=== PATIENT | female | born 1940 | race African-American/Black ===

== ENCOUNTER 2020-01-10 06:10 | Observation (INO) | payer MEDICARE, OTHER ==
[2020-01-07 09:56] LABS: BASOPHILS % 0.7 % (0.0-1.0); EOSINOPHILS # (AUTO) 0.2 (0.0-0.4); EOSINOPHILS % 2.6 % (0.0-6.0); HEMATOCRIT 37.2 % (34.2-44.1); HEMOGLOBIN 12.3 g/dL (12.0-16.0); LYMPHOCYTES % 32.6 % (18.0-39.1); MEAN CORPUSCULAR HEMOGLOBIN 28.8 pg (28-32); MEAN CORPUSCULAR HGB CONC 33.1 g/dL (31-35); MEAN CORPUSCULAR VOLUME 87.1 fL (81-99); MONOCYTES # (AUTO) 0.5 (0.2-0.8); MONOCYTES % 8.8 % (4.4-11.3); NEUTROPHILS # (AUTO) 3.4 (2.1-6.9); NEUTROPHILS % 55.1 % (38.7-80.0); PLATELET COUNT 240 x10e3/uL (140-360); RED BLOOD COUNT 4.27 x10e6/uL (3.6-5.1); RED CELL DISTRIBUTION WIDTH 13.6 % (11.7-14.4)
--- NOTE | 2020-01-07 10:11 | Diagnostic Imaging Report ---
Chest, 2 views, 01/07/2020. History: Shortness of breath. Comparison: None available. Findings: The cardiomediastinal silhouette and pulmonary vasculature are within normal limits. The lungs are clear without evidence of consolidation or pleural effusion. Surgical clips are noted in the right lower neck region. Degenerative changes are present in the shoulders. There are no acute osseous or soft tissue abnormalities. Impression: No acute cardiopulmonary abnormality. Signed by: Will Kaufman on 01/07/2020 10:09 AM
[2020-01-07 10:14] LABS: ALANINE AMINOTRANSFERASE 10 IU/L (0-55); ALBUMIN 3.4 g/dL (3.5-5.0); ALKALINE PHOSPHATASE 74 IU/L (40-150); ANION GAP 6.8 mmol/L (8-16); BLOOD UREA NITROGEN 14 mg/dL (7-26); BUN/CREATININE RATIO 16 (6-25); CALCIUM 10.3 mg/dL (8.4-10.2); CARBON DIOXIDE 27 mmol/L (22-29); CHLORIDE 109 mmol/L (98-107); CREATININE, SERUM 0.88 mg/dL (0.57-1.11); EST GLOMERULAR FILTRATION RATE > 60 ML/MIN (60-); GLUCOSE 89 mg/dL (74-118); POTASSIUM 3.8 mmol/L (3.5-5.1); SODIUM 139 mmol/L (136-145)
[~2020-01-10] VITALS: Ht 152.4 cm; Wt 110.4 kg
[~2020-01-10 06:10] MED LIST: ALENDRONATE SOD70 MG PO; ALLOPURINOL100 MG PO; AMLODIPINE BESYL5 MG PO; BYSTOLIC10 MG PO; CLONAZEPAM0.5 MG PO; DECARA25000 UNIT PO; EXENATIDE; FUROSEMIDE40 MG PO; MONTELUKAST SOD10 MG PO; OXAPROZIN600 MG PO; POTASSIUM CHLO20 ME1 PO; TRULICITY1.5 MG/0.5 INJ; Z ULORIC PO; Z.0.CELEBREX200 MG PO; Z.0.DIOVAN HCT 3201 PO; [UNRECOGNIZED DRUG - OTHER] PO; [UNRECOGNIZED DRUG - OTHER] PO
--- OUTSIDE RECORDS SUMMARY | 2020-01-10 06:18 | XMS REPORT ---
Author Author [facility] Address Unknown Phone Unavailable Care Team Providers Care [employer] Paralegal Name Role Phone Yajaira WALKER Unavailable Unavailable BENOIT NARANJO Unavailable Unavailable Problems This patient has no known problems. Allergies, Adverse Reactions, Alerts This patient has no known allergies or adverse reactions. Medications This patient has no known medications. Encounters Start Date/Time End Date/Time Encounter Type Admission Type Attending [facility] Care Facility Care Department Encounter ID 2019-10-06 11:38:00 2019-10-06 11:38:00 Emergency E MHBL [id number] 2019-05-05 10:07:00 2019-05-05 10:07:00 Outpatient MHSE MED [id number] Results Test Description Test Time Test Comments Text Results Atomic Results Result Comments CHEST 2 VIEWS 2020-01-07 10:08:00 [place] [address] Patient Name: ARIADNA LONGORIA MR #: [id number] : 1940 Age/Sex: 79/F Req #: [id number] Adm Physician: Ordered by: DEMARIO WALKER MD Report #: [id number] Location: OR Room/Bed: Procedure: [id number] DX/CHEST 2 VIEWS Exam Date: 01/07/20 Exam Time: 0950 REPORT STATUS: Signed Chest, 2 views, 01/07/2020. History: Shortness of breath. Comparison: None available. Findings: The cardiomediastinal silhouette and pulmonary vasculature are within normal limits. The lungs are clear without evidence of consolidation or pleural effusion. Surgical clips are noted in the right lower neck region. Degenerative changes are present in the shoulders. There are no acute osseous or soft tissue abnormalities. Impression: No acute cardiopulmonary abnormality. Signed by: Will Kaufman on 01/07/2020 10:09 AM Dictated By: WILL KAUFMAN MD 1009 Transcribed By: SHARDA on 01/07/20 1009 COPY TO: DEMARIO WALKER MD BREAST STEREO CORE BIOPSY LEFT 2019-08-23 14:01:28 - BREAST STEREO CORE BIOPSY LEFTSTEREOTACTIC GUIDED BIOPSY LEFT BREAST WITH MARKING DEVICE INSERTED: 08/17/2019CLINICAL: Stereotactic biopsy, left breast. Comparison is made to exam dated 07/27/2019 mammogram - [facility]. A stereotactic guided biopsy was performed for the fine segmental calcification located in the left breast at 8 o'clock, posterior depth. This was described on the previous mammography report. The skin was prepped in the usual manner. Local anesthetic was administered to the access site. The abnormality was approached from the craniocaudal aspect using an upright mammography unit. A biopsy needle was placed adjacent to the abnormality under computer guidance and confirmatory stereotactic mammography images were obtained to document needle placement. Onc e the needle was documented to be in the correct location, a specimen was obtained using an automated biopsy gun. An "M" shaped clip was inserted into the biopsy cavity. The specimen was sent to the laboratory for pathological analysis. IMPRESSION: STEREOTACTIC GUIDED BIOPSYStereotactic guided biopsy of the calcification in the left breast at 8 o'clock, posterior depth, was successful with no apparent post procedure complications. Waiting for pathology results. A final report will be issued when these become available. FINAL PATHOLOGY:Benign breast tissue with focal atypical ductal hyperplasia with calcifications. Negative for in situ and invasive malignancy.RECOMMENDATION:High risk pathology (ADH). However, overall this is discordant given the segmental distribution of these linear calcifciations. Given multiple spiculated asymmetries in the extent of these calcifications, breast MRI with and without contrast is recommended for further clarification. Further biopsies can be performed after the MRI. Surgical consultation for further management and complete excision is also recommended at this time. Lowell Bennett M.D. ss/:08/23/2019 14:01:28 Entry: 08/23/2019 14:42:33Imaging Technologist: Meghan SANDERS, [facility]OPSY LEFT 2019-08-23 13:59:40 - BREAST STEREO CORE BIOPSY LEFTSTEREOTACTIC GUIDED BIOPSY LEFT BREAST WITH MARKING DEVICE INSERTED: 08/17/2019CLINICAL: Stereotactic biopsy, left breast. Comparison is made to exam dated 07/27/2019 mammogram - [facility]. A stereotactic guided biopsy was performed for the microlobulated irregular shaped asymmetry located in the left breast at 8 o'clock, posterior depth. This was described on the previous mammography report. The skin was prepped in the usual manner. Local anesthetic was administered to the access site. The abnormality was approached from the craniocaudal aspect using an upright mammography unit. A biopsy needle was placed adjacent to the abnormality under computer guidance and confirmatory stereotactic mammography images were obtained to document needle pl acement. Once the needle was documented to be in the correct location, a specimen was obtained using an automated biopsy gun. An "O" shaped clip was inserted into the biopsy cavity. The specimen was sent to the laboratory for pathological analysis. IMPRESSION: STEREOTACTIC GUIDED BIOPSYStereotactic guided biopsy of the asymmetry in the left breast at 8 o'clock, posterior depth, was successful with no apparent post procedure complications. Waiting for pathology results. A final report will be issued when these become available. FINAL PATHOLOGY:Invasive ductal carcinoma with tubular features, grade 1.RECOMMENDATION:Concordant findings, malignant. Upon further review patient has similar appearing spiculated masses/asymmetries in the medial breast. These are marked on the LSCC from 07/27/2019. Given that the largest one is IDC, the rest appear to be satellite lesions and the farthest posterior one is 7 cm from this biopsy proven IDC. Since these were not seen on U/S, breast MRI with and without contrast is recommended for further clarification of the extent of disease, specially given the adjacent discordant calcifications. Surgical consultation for further management is also recommended. FINAL PATHOLOGY:Lowell Bennett M.D. ss/:08/23/2019 13:59:40 Entry: 08/23/2019 14:44:57Imaging Technologist: Meghan SANDERS [facility] BREAST STEREO CORE BIOPSY LEFT 2019-08-23 13:59:40 - BREAST STEREO CORE BIOPSY LEFTSTEREOTACTIC GUIDED BIOPSY LEFT BREAST WITH MARKING DEVICE INSERTED: 08/17/2019CLINICAL: Stereotactic biopsy, left breast. Comparison is made to exam dated 07/27/2019 mammogram - [facility]. A stereotactic guided biopsy was performed for the microlobulated irregular shaped asymmetry located in the left breast at 8 o'clock, posterior depth. This was described on the previous mammography report. The skin was prepped in the usual manner. Local anesthetic was administered to the access site. The abnormality was approached from the craniocaudal aspect using an upright mammography unit. A biopsy needle was placed adjacent to the abnormality under computer guidance and confirmatory stereotactic mammography images were obtained to document needle pl acement. Once the needle was documented to be in the correct location, a specimen was obtained using an automated biopsy gun. An "O" shaped clip was inserted into the biopsy cavity. The specimen was sent to the laboratory for pathological analysis. IMPRESSION: STEREOTACTIC GUIDED BIOPSYStereotactic guided biopsy of the asymmetry in the left breast at 8 o'clock, posterior depth, was successful with no apparent post procedure complications. Waiting for pathology results. A final report will be issued when these become available. FINAL PATHOLOGY:Invasive ductal carcinoma with tubular features, grade 1.RECOMMENDATION:Concordant findings, malignant. Upon further review patient has similar appearing spiculated masses/asymmetries in the medial breast. These are marked on the LSCC from 07/27/2019. Given that the largest one is IDC, the rest appear to be satellite lesions and the farthest posterior one is 7 cm from this biopsy proven IDC. Since these were not seen on U/S, breast MRI with and without contrast is recommended for further clarification of the extent of disease, specially given the adjacent discordant calcifications. Surgical consultation for further management is also recommended. FINAL PATHOLOGY:Lowell Bennett M.D. ss/:08/23/2019 13:59:40 Entry: - 08/23/2019 14:44:57Imaging Technologist: Meghan SANDERS, [facility] BREAST STEREO CORE BIOPSY LEFT 2019-08-23 13:59:40 - BREAST STEREO CORE BIOPSY LEFTSTEREOTACTIC GUIDED BIOPSY LEFT BREAST WITH MARKING DEVICE INSERTED: 08/17/2019CLINICAL: Stereotactic biopsy, left breast. Comparison is made to exam dated 07/27/2019 mammogram - [facility] A stereotactic guided biopsy was performed for the microlobulated irregular shaped asymmetry located in the left breast at 8 o'clock, posterior depth. This was described on the previous mammography report. The skin was prepped in the usual manner. Local anesthetic was administered to the access site. The abnormality was approached from the craniocaudal aspect using an upright mammography unit. A biopsy needle was placed adjacent to the abnormality under computer guidance and confirmatory stereotactic mammography images were obtained to document needle pl acement. Once the needle was documented to be in the correct location, a specimen was obtained using an automated biopsy gun. An "O" shaped clip was inserted into the biopsy cavity. The specimen was sent to the laboratory for pathological analysis. IMPRESSION: STEREOTACTIC GUIDED BIOPSYStereotactic guided biopsy of the asymmetry in the left breast at 8 o'clock, posterior depth, was successful with no apparent post procedure complications. Waiting for pathology results. A final report will be issued when these become available. FINAL PATHOLOGY:Invasive ductal carcinoma with tubular features, grade 1.RECOMMENDATION:Concordant findings, malignant. Upon further review patient has similar appearing spiculated masses/asymmetries in the medial breast. These are marked on the LSCC from 07/27/2019. Given that the largest one is IDC, the rest appear to be satellite lesions and the farthest posterior one is 7 cm from this biopsy proven IDC. Since these were not seen on U/S, breast MRI with and without contrast is recommended for further clarification of the extent of disease, specially given the adjacent discordant calcifications. Surgical consultation for further management is also recommended. FINAL PATHOLOGY:Lowell Bennett M.D. ss/:08/23/2019 13:59:40 Entry: - 08/23/2019 14:44:57Imaging Technologist: Meghan SANDERS, [facility] DIAG MAMM LEFT TRAM CAD DIGITAL 2019-07-27 14:05:53 - DIAG MAMM LEFT TRAM CAD DIGITALUNILATERAL LEFT DIGITAL DIAGNOSTIC MAMMOGRAM 3D/2D WITH CAD: 07/27/2019CLINICAL: Abnormal Mammogram. Digital breast tomosynthesis was performed in addition to routine CC and MLO views. Current mammographic images were evaluated by either a Agendia M-Vu or a InfoVista ImageChecker CAD (computer aided detection system). Comparison is made to exams dated 07/09/2019 mammogram, 01/12/2015 mammogram, and 12/10/2012 mammogram - [facility] There are scattered fibroglandular tissues in the left breast. Bilateral breast with multiple areas of fat necrosis/oils cysts. Persistent tubular focal asymmetries in the left lower inner breast, automotive leasing sales representative one is a 5 mm focal asymmetry, approximately 11 cm from nipple, with irregular margins. Additionally, segment ally distributed fine branching calcifications in the lower breast at 6-7 o'clock that spans 85 x 80 x 50 mm (AP x WA x SI). IMPRESSION: INCOMPLETE ASSESSMENT: ADDITIONAL IMAGING EVALUATION RECOMMENDED1. Focal asymmetries in the left lower inner breast, automotive leasing sales representative one at 11 cm from the nipple, with irregular margins measuring 5mm. 2. Adjacent fine branching segmental calcfications. Ultrasound to follow.Lowell Bennett M.D. ss/:07/27/2019 14:05:53 Entry: - 07/28/2019 11:03:34Imaging Technologist: Akilah Walker , [facility] 0 Indeterminate BREAST ULTRASOUND BILATERAL 2019-07-27 14:05:00 - BREAST ULTRASOUND BILATERALULTRASOUND OF BOTH BREASTS: 07/27/2019Comparison is made to exams dated 07/09/2019 mammogram, 01/12/2015 mammogram, and [facility] Color flow and real-time ultrasound of both breasts were performed. Martinez scale images of the real-time examination were reviewed. The breast tissue has homogenous fatty background echotexture. Bilateral survey ultrasound demonstrates multiple areas of fat necrosis/oil cysts correlating with the mammographic masses. The left lower inner breast demonstrates no suspicious sonographic abnormality; no sonographic correlate for mammographic findings. No axillary lymphadenopathy was seen.IMPRESSION: SUSPICIOUS OF MALIGNANCY - FOLLOW- UP RECOMMENDED1. At least 4 asymmetries in the left lower inner breast, the suspicious one that measures 5 mm seen on frame #26 of LSCC and slice 16 of LLM. Tomosynthesis guided core biopsy is recommended at this time. The rest of the focal asymmetries should be followed with short-term follow-up pending biopsy results.2. Fine branching segmental calcifcations in the lower breast 6-7 o'clock of the left breast. Stereotactic core biopsy is recommended at this time. Results and recommendations were discussed with the patient.Lowell Bennett M.D. ss/:07/27/2019 14:05:00 Entry: - 07/28/2019 11:07:50Imaging Technologist: Akilah Walker , [facility]- letter sent: BIRADS 4/5 Biopsy Ultrasound BI-RADS: 4b Suspicious abnormality - intermediate suspicion of malignancy SCR MAMM BILATERAL TRAM CAD DIGITAL 2019-07-12 14:21:36 - SCR MAMM BILATERAL TRAM CAD DIGITALBILATERAL DIGITAL SCREENING MAMMOGRAM 3D/2D WITH CAD: 07/09/2019CLINICAL: Asymptomatic. Digital breast tomosynthesis was performed in addition to routine CC and MLO views. Current mammographic images were evaluated by either a Agendia M-Vu or a Souktel CAD (computer aided detection system). Comparison is made to exams dated 01/12/2015 mammogram, 12/10 mammogram, and 01/10/2011 mammogram - [facility]-. There are scattered fibroglandular tissues in both breasts. There are several subcentimeter focal asymmetries in the lower inner quadrant of the left breast at middle depth, 11-15 cm from the nipple with associated questionable architectural distortion (LCC 12, 19; LMLO 29, 37, 58). There are also surrounding fine linear calcifications.No other abnormal findings in either breast. IMPRESSION: INCOMPLETE ASSESSMENT: ADDITIONAL IMAGING EVALUATION RECOMMENDEDLEFT BREAST: Several subcentimeter focal asymmetries in the lower inner quadrant of the left breast at middle depth, 11-15 cm from the nipple, with associated questionable architectural distortion (LCC 12, 19; LMLO 29, 37, 58). There are also surrounding fine linear calcifications. Additional tomosynthesis spot compression views and possible ultrasound are recommended.RIGHT BREAST: No mammographic evidence of malignancy. Annual mammgraphic follow-up is recommended. Anyi Chinchilla D.O. al/:07/12/2019 14:21:36 Building Custodial Supervisor: Debo SANDERS, [facility]- letter sent: Additional Imaging Mammogram BI-RADS: 0 Indeterminate US GALLBLADDER [place] [address] Patient Name: ARIADNA LONGORIA MR #: [id number] : 1940 Age/Sex: 76/F Req #: [id number] Adm Physician: Ordered by: BENOIT NARANJO MD Report #: [id number] Location: US Room/Bed: Procedure: [id number] US/US GALLBLADDER Exam Date: 07/29/17 Exam Time: 1115 REPORT STATUS: Signed PROCEDURE: US GALLBLADDER COMPARISON: None. INDICATIONS: Nausea FINDINGS: Martinez scale and color flow Doppler ultrasound of the right upper abdomen was performed. Liver: 12.8 cm span. Normal parenchymal echogenicity. No discrete mass or intrahepatic duct dilatation. Main portal vein 0.8 cm, normal hepatopetal flow. Biliary: No cholelithiasis or gallbladder wall thickening. Sonographic Carnes's sign negative. Common bile duct 0.3 cm, nondilated. Right kidney: 11.2 cm span. There is a simple cyst measuring 6.9 x 4.6 x 6.2 cm at the lateral lower pole of the right kidney. No hydronephrosis. Cortical echogenicity normal. Pancreas: Visualized portions unremarkable. Vessels: The visualized portions of the aorta and IVC unremarkable. Ascites: No free fluid in the right upper abdomen. CONCLUSION: 1. No cholelithiasis or gallbladder wall thickening. No dilatation of the biliary tree. 2. Right renal cyst. 3. No sonographic evidence for acute pathology in the right upper abdomen. Dictated by: Domi Merrill M.D. on 07/29/2017 at 12:25 Electronically approved by: Domi Merrill M.D. on 07/29/2017 at 12:25 Dictated By: DOMI MERRILL MD 1225 Transcribed By: JANINE on 07/29/17 1225 COPY TO: BENOIT NARANJO MD
--- OUTSIDE RECORDS SUMMARY | 2020-01-10 06:18 | XMS REPORT | Summary of Care ---
Author Author MICHAEL TYSON M.D. Unknown Address [facility] Phone Unavailable Care Team Providers Care [employer]ater Furnace Name Role Phone MICHAEL TYSON M.D. Unavailable Unavailable SOTO DAMON MD Unavailable Unavailable MICHAEL TYSON MD Unavailable Unavailable Unavailable Unavailable Functional Status Name Dates Details Functional status health issues are not documented Status: Name Dates Details Cognitive status health issues are not documented Status: Problems Name Dates Details Gastritis (535.50, K29.70) Status: Active Hearing loss (389.9, H91.90) Status: Active Multinodular goiter (241.1, E04.2) Status: Active Diabetes (250.00, E11.9) Status: Active High blood pressure (401.9, I10) Status: Active Rhinorrhea (478.19, J34.89) Status: Active Sneezing with right watery eye (784.99, H04.201) Status: Active Allergic rhinitis (477.9, J30.9) Status: Active Chronic headaches (784.0, R51) Status: Active Medications Name Dates Details K-Maryuri 20 MEQ PACK Active Trulicity SOPN * Refills: 0 Active Furosemide TABS * Refills: 0 Active Atorvastatin Calcium TABS * Refills: 0 Active Meclizine HCl TABS * Refills: 0 Active clonazePAM TABS * Refills: 0 Active Bystolic TABS * Refills: 0 Active amLODIPine Besylate TABS * Refills: 0 Active Allopurinol TABS * Refills: 0 Active hydrOXYzine HCl TABS * Refills: 0 Active Allergies and Adverse Reactions Name Dates Details No Known Allergies (Allergy) Status: Active Procedures Procedure Dates Details History of Hip Surgery Completed Immunization Name Dates Details Immunizations not documented Family History Name Dates Details Family history of cardiac disorder (V17.49, Z82.49) Status: Active Name Dates Details Family history of malignant neoplasm (V16.9, Z80.9) Status: Active Social History Name Dates Details - Status: Name Dates Details Never smoker Vital Signs Date Test Result Details [id number] BP Systolic 152 mm[Hg] Status: BP Diastolic 79 mm[Hg] Status: Height 66 in Status: Weight 226.25 lb Status: Body Mass Index Calculated 36.52 kg/m2 Status: Body Surface Area Calculated 2.11 m2 Status: Heart Rate 69 /min Status: Results Date Description Value Details Results not documented Plan of Care Name Dates Details Planned Observations Planned Goals not documented Planned Encounters Neurology Referral Interventions Provided Plan* 1. Allergy symptoms are better. Will need to continue the nasal spray and the antihistamine. Neurology consult for the headaches. Instructions Name Dates Details Instructions not documented Encounters Appointment; JOHNATHON WARREN M.D. Encounter Diagnosis: Problem not documented On: 04-Aug-2018 14:30 Appointment; MICHAEL TYSON M.D. Encounter Diagnosis: Problem not documented On: 01-Sep-2018 8:45 Appointment; MICHAEL TYSON M.D. Encounter Diagnosis: Problem not documented On: 22-Mar-2019 9:15 Appointment; MICHAEL TYSON M.D. Encounter Diagnosis: Problem not documented On: 23-Apr-2019 10:30
[2020-01-10] MEDS ORDERED: BUPIVACAINE 0.25% 30ML SDV INJ ONE (10:47)
[2020-01-10] MEDS ORDERED: MONTELUKAST SODIUM 10 MG TAB PO PRN (13:00)
[2020-01-10] MEDS ORDERED: ONDANSETRON HCL INJ 2MG/ML 2ML 2 MG/ML VIAL IV PRN (13:00)
[2020-01-10] MEDS ORDERED: HYDROCODONE/APAP 7.5MG-325MG 1 EA TAB PO PRN (13:00)
[2020-01-10] MEDS ORDERED: HYDROMORPHONE 1MG/1ML INJ IV PRN (13:00)
[2020-01-10] MEDS ORDERED: LABETALOL HCL 20 ML ONE (13:20)
--- NOTE | 2020-01-10 13:37 | Operative Report ---
DATE OF PROCEDURE: 01/10/2020 SURGEON: Mario Alberto Walker MD PREOPERATIVE DIAGNOSES: Carcinoma of the left breast. POSTOPERATIVE DIAGNOSIS: Carcinoma of the left breast. OPERATION PERFORMED: Left total mastectomy with left axillary sentinel node mapping and excisional biopsy. ASSISTANTS: 1. Dr. Gato Walker. 2. YANET Peña. ANESTHESIA: General. COMPLICATIONS: None. ESTIMATED BLOOD LOSS: 50 mL. DESCRIPTION OF PROCEDURE: With the patient lying in bed in the supine position under good general anesthesia, after having undergone a left axillary sentinel node mapping, the chest, left breast, and axilla were prepped with Betadine solution and draped in the usual manner. An elliptical incision was then made to include all of the breast tissue and the nipple areolar complex. The flaps were then developed in all directions superiorly to the clavicle, medially to the sternum, inferiorly to the rectus fascia, and laterally to the latissimus dorsi. The breast tissue was then taken off the pectoralis major muscle with the cautery and hemostasis was ascertained. The lateral border of the pectoralis major and minor were then dissected, and the breast tissue was totally and completely removed, marked and sent for pathological examination. Hemostasis was ascertained. The previously mapped sentinel node was then easily identified with the Neoprobe without any difficulty and the axillary packet around the lymph node was then totally and completely excised and sent for pathological examination. There was no other hot spots in the axilla present. The Neoprobe counts were up was 1700 in the one lymph node and there was no uptake anywhere else in the axilla. The whole area was then thoroughly irrigated. Perfect hemostasis was ascertained. All bleeding points were either electrocoagulated or ligated with 2-0 Vicryl. Two 10 flat Mina-Morillo drains were then left, one in the axilla the other one in the pectoralis area, and brought out through a separate stab wound incisions and sutured to the skin with 2-0 silk, and the wound was then closed with interrupted vertical mattress sutures of 2-0 and 3-0 silk. A dressing was applied. The sponge, lap, and needle count was correct. The patient tolerated the procedure well and returned to the recovery room in stable condition. MD GALEN Dockery/PRESTON /[id number]
[2020-01-10] MEDS ORDERED: LIDOCAINE HCL 2% LOCAL INJ 5 ML SDV VIAL INJ ONE (13:42)
[2020-01-10] MEDS ORDERED: ONDANSETRON HCL INJ 2MG/ML 2ML 2 MG/ML VIAL ONE (13:42)
[2020-01-10] MEDS ORDERED: MORPHINE SULFATE 2 MG/ML SYR 1ML ONE (13:42)
[2020-01-10] MEDS ORDERED: PROPOFOL IV EMULSION 10 MG/ML 20 ML VIAL ONE (13:42)
[2020-01-10] MEDS ORDERED: SEVOFLURANE INHAL SOLN 250 ML PEN BTL ONE (13:42)
[2020-01-10] MEDS ORDERED: MIDAZOLAM HCL 2 MG/2 ML VIAL ONE (14:05)
[2020-01-10] MEDS ORDERED: FENTANYL CITRATE/PF 100MCG/2 ML INJ ONE (14:05)
[2020-01-10] MEDS ORDERED: SODIUM CHLORIDE 0.9% 1000ML 1,000 ML IV SCH (17:30)
[2020-01-10] MEDS ORDERED: ACETAMINOPHEN 1000 MG/100 ML IV PRN (18:00)
[2020-01-10] MEDS: CEFAZOLIN SOD 1 GM/NS 50ML 50 ML IV SCH (18:29)
[2020-01-10 18:30] VITALS: BP 177/75
[2020-01-10 18:32] VITALS: BP 167/75
--- NOTE | 2020-01-10 18:38 | Diagnostic Imaging Report ---
Lymphoscintigraphy Reason for Exam: Left breast cancer; scheduled for sentinel lymph node biopsy Radiopharmaceutical: Tc-99m filtered sulfur colloid 480 microcuries Report: The radiotracer was given as two separate injections intradermally at the ledge of the left areola. A focus of tracer accumulation is seen deep within the left axilla. A second fainter accumulation of tracer is seen more medially. No accumulation of tracer is seen in the midline of the chest or in the neck. Impression: A single sentinel lymph nodes is identified in the left axilla. A secondary lymph node is seen more medially. Signed by: Dr. Kay Almazan M.D. on 01/10/2020 6:35 PM
[2020-01-10 20:01] VITALS: BP 162/74
[2020-01-10 20:40] VITALS: BP 172/72
--- NOTE | 2020-01-10 20:40 | NUR ---
RECEIVED PATIENT TRANSFER AT THIS TIME. PATIENT RESTING IN BED AT THIS TIME, A&OX3. PAIN REPORTED TO BE TOLERABLE. SURGICAL DRESSING TO L UPPER TORSO C/D/I. 2 SEGUN DRAINS NOTED WITH SEROSANGUINEOUS FLUID. L LIMB ALERT BAND ADDED. IV TO R FA NOTED TO INFILTRATED AND TENDER. IV REMOVED AT THIS TIME, CATHETER TIP INTACT, PRESSURE DRESSING APPLIED AND WARM COMPRESS PROVIDED. PATIENT AMBULATED WITH ASSISTANCE TO TOILET, SAFELY RETURNED TO BED, SCDS REATTACHED. BOWEL SOUNDS ACTIVE, NO GAS REPORTED YET. PEDAL PULSES PALPABLE. NO EDEMA NOTED. BED LOCKED IN LOWEST POSITION, SIDE RAILS UPX2, CALL LIGHT IN REACH.
[2020-01-10 23:22] VITALS: BP 172/72
--- NOTE | 2020-01-10 23:45 | NUR ---
TWO NEW IVS PLACED. R WRIST 22G, R FA 20G. NURSE WHO PLACED IVS RECOMMENDED BEING VERY CAREFUL WITH 22G IT IS IN A "DELICATE VEIN," WHICH LED HIM TO PLACE SECOND IV, 20G. IV FLUIDS RESUMED, NS@100ML/HR.
[2020-01-11] VITALS: BP 167/70
[2020-01-11] MEDS: CEFAZOLIN SOD 1 GM/NS 50ML 50 ML IV SCH (02:14)
[2020-01-11 04:00] VITALS: BP 182/76
--- NOTE | 2020-01-11 05:20 | NUR ---
BP NOTED TO BE 182/76. DECREASED FLUIDS TO 75ML/HR, ADMINISTERED MORNING BP MEDS EARLY. WILL INFORM ONCOMING NURSE.
--- NOTE | 2020-01-11 07:10 | NUR ---
RCD PT AT BED PT IS ALERT AND ORIENTED RESTING ON BED NO SIGNS OF ANY DISTRESS NOTED IV PATENT BED LOW AND LOCKED CALL LIGHT IN REACH
[2020-01-11 08:00] VITALS: BP 160/66
[2020-01-11 08:38] VITALS: BP 160/66
[2020-01-11] MEDS ORDERED: NEBIVOLOL 10 MG TAB PO SCH (09:00)
[2020-01-11] MEDS ORDERED: AMLODIPINE BESYLATE 5 MG TAB PO SCH (09:00)
[2020-01-11 12:00] VITALS: BP 147/65
--- NOTE | 2020-01-11 14:00 | NUR ---
PATIENT WENT HOME IN SAFE CONDITION WITH HER
== END 2020-01-11 14:10 | disposition home or self-care (01) ==
LOC: OR 06:10 → PACU V 12:53 → IMCU 16:55 → MED/SURG 20:29
PROVIDERS: ADMIT Surgery; ATTEND Surgery
DX: C50.912 Malignant neoplasm of unspecified site of left female breast (principal)
CPT/HCPCS: 19307; 36415 ×3; 71046; 78195; 80053; 82948 ×2; 85025; 88305; 88309; 93005; A9541; G0378 ×2; J0690 ×2; J2001; J2250; J2270; J2405; J2704; J3010; J3490; J7030

== ENCOUNTER → 2021-05-24 | Outpatient (CLI) | payer MEDICARE ==
[2021-05-24 12:07] LABS: BASOPHILS % 0.5 % (0.0-1.0); EOSINOPHILS # (AUTO) 0.1 (0.0-0.4); EOSINOPHILS % 1.9 % (0.0-6.0); HEMATOCRIT 38.4 % (34.2-44.1); HEMOGLOBIN 12.2 g/dL (12.0-16.0); LYMPHOCYTES # (AUTO) 2.7 (1.0-3.2); LYMPHOCYTES % 36.1 % (18.0-39.1); MEAN CORPUSCULAR HEMOGLOBIN 28.7 pg (28-32); MEAN CORPUSCULAR HGB CONC 31.8 g/dL (31-35); MEAN CORPUSCULAR VOLUME 90.4 fL (81-99); MONOCYTES # (AUTO) 0.6 (0.2-0.8); MONOCYTES % 8.1 % (4.4-11.3); NEUTROPHILS # (AUTO) 3.9 (2.1-6.9); PLATELET COUNT 164 x10e3/uL (140-360); RED BLOOD COUNT 4.25 x10e6/uL (3.6-5.1); RED CELL DISTRIBUTION WIDTH 13.5 % (11.7-14.4)
[2021-05-24 12:26] LABS: ALBUMIN 3.7 g/dL (3.5-5.0); ALBUMIN/GLOBULIN RATIO 1.1 (0.8-2.0); ANION GAP 13.4 mmol/L (8-16); CALCIUM 10.2 mg/dL (8.4-10.2); CREATININE, SERUM 0.83 mg/dL (0.57-1.11); POTASSIUM 4.4 mmol/L (3.5-5.1)
== END ==
LOC: MAMMO 11:10
PROVIDERS: ATTEND Surgery
DX: Z98.890 Other specified postprocedural states (principal); Z85.3 Personal history of malignant neoplasm of breast
CPT/HCPCS: 36415; 71046; 80053; 82378; 85025